=== PATIENT | male | born 1935 | race Caucasian/White ===

== ENCOUNTER 2016-06-19 06:07 | Emergency (ER) | payer OTHER, MEDICARE ==
[2016-06-19 06:13] VITALS: PULSE 82; TEMP 98.2
--- NOTE | 2016-06-19 06:16 | EDPHY ---
H & P Stated Complaint: cough/cold HPI/ROS: HPI CHIEF COMPLAINT: Cough x5 days HISTORY OF PRESENT ILLNESS: This patient very pleasant 81-year-old male significant past medical history for hypertension, presents to the emergency room with 5 days of worsening cough with clear to yellow sputum. Does tell me that he does not have any chest pain or shortness of breath. Denies fever. Tells me about 5-6 days ago he developed a postnasal drip and congestion. This persisted into a cough. He has been having trouble sleeping. He tells me he has been up all night coughing. He takes deep breath in this causes a spasm any begins to cough with faint wheezing. He denies nausea, vomiting, diarrhea, muscle aches or joint pain. Past Medical History: Hypertension Past Surgical History: Denies recent surgical history Social History: denies use of drugs alcohol tobacco products Family History: Noncontributory ROS REVIEW OF SYSTEMS: A comprehensive 10 point review of systems is otherwise negative aside from elements mentioned in the history of present illness. Exam Constitutional triage nursing summary reviewed, vital signs reviewed, awake/ alert. Eyes normal conjunctivae and sclera, EOMI, PERRLA. HENT normal inspection, atraumatic, moist mucus membranes, no epistaxis, neck supple/ no meningismus, no raccoon eyes. Respiratory faint wheezing bilaterally, bronchitic sounding cough, normal breath sounds, no respiratory distress Cardiovascular rate normal, regular rhythm, no murmur, no edema, distal pulses normal. Gastrointestinal soft, non-tender, no rebound, no guarding, normal bowel sounds, no distension, no pulsatile mass. Genitourinary no CVA tenderness. Musculoskeletal no midline vertebral tenderness, full range of motion, no calf swelling, no tenderness of extremities, no meningismus, good pulses, neurovascularly intact. Skin pink, warm, & dry, no rash, skin atraumatic. Neurologic awake, alert and oriented x 3, AAOx3, moves all 4 extremities equally, motor intact, sensory intact, CN II-XII intact, normal cerebellar, normal vision, normal speech. Psychiatric normal mood/affect. Heme/Lymph/Immune no lymphadenopathy. Differential Diagnosis: includes but is not limited to in a particular order, upper respiratory tract infection, viral syndrome, bronchitis, pneumonia, reactive airway disease, asthma, CHF Medical Decision Making: this patient be given a DuoNeb breathing treatment here 60 mg prednisone p. o., or evaluate for two view chest x-ray to rule out pneumonia. Re-evaluation: 0659: re-evaluation at this time patient is feeling much better after DuoNeb breathing treatment. Chest x-ray reviewed shows no acute pneumonia. Clear lung eng. ED x-ray chest two view: negative for acute cardiopulmonary disease. 0659: at this time she is resting comfortably. No complaints. Patient be sent home on guaifenesin decongestion, prednisone 60 mg for 5 days, azithromycin antibiotic and albuterol inhaler. patient understands return emergency room if there is any worsening symptoms questions or concerns. Source: Patient - Personal History Current Tetanus/Diphtheria Vaccine: No - Medical/Surgical History Hx Asthma: No Hx Chronic Respiratory Disease: No Hx Diabetes: No Hx Cardiac Disease: No Hx Renal Disease: No Hx Cirrhosis: No Hx Alcoholism: No Hx HIV/AIDS: No Hx Splenectomy or Spleen Trauma: No Other PMH: PMHx: Cyst left leg, DVT, HTN. PSHx: bilat shoulder, back, cyst from hip - Social History Smoking Status: Former smoker Constitutional: Initial Vital Signs Temperature (C) 36.8 C 06/19/16 06:10 Heart Rate 82 06/19/16 06:10 Respiratory Rate 16 06/19/16 06:10 Blood Pressure 162/88 H 06/19/16 06:10 O2 Sat (%) 95 06/19/16 06:10 O2 Delivery Mode Room Air Allergies/Adverse Reactions: No Known Allergies Allergy (Unverified 11/27/13 11:06) Home Medications: Medication Instructions Recorded HCTZ (RX) 11/27/13 AZITHROMYCIN [Z-PACK] 250 mg PO DAILY #6 tab 06/19/16 Albuterol [Proventil Inhaler HFA 1 - 2 puffs IH Q4H #1 mdi 06/19/16 (*)] Dexamethasone [Decadron 4 MG (*)] 4 mg PO DAILY #4 tab 06/19/16 Guaifenesin [Guaifenesin ER] 600 mg PO BID #14 tab.er.12h 06/19/16 predniSONE 60 mg PO DAILY #15 tab 06/19/16 Medical Decision Making - Data Points Medications Given: Discontinued Medications Albuterol/Ipratropium (Duoneb) 3 ml IH EDNOW ONE Stop: 06/19/16 06:21 Last Admin: 06/19/16 06:26 Dose: 3 ml Prednisone (Prednisone) 60 mg PO EDNOW ONE Stop: 06/19/16 06:21 Last Admin: 06/19/16 06:26 Dose: 60 mg Departure - Departure Disposition: Home, Routine, Self-Care Clinical Impression: Acute bronchitis Qualifiers: Bronchitis organism: unspecified organism Qualifier Code: (J20.9) Acute bronchitis, unspecified Condition: Good Instructions: Acute Bronchitis (ED) Additional Instructions: 1. drink lots of fluids stay well-hydrated 2. return to the emergency room if there is any worsening symptoms questions or concerns. Referrals: Ankush Rios MD [Primary Care Provider] - As per Instructions Prescriptions: Dexamethasone [Decadron 4 MG (*)] 4 mg PO DAILY #4 tab Guaifenesin [Guaifenesin ER] 600 mg PO BID #14 tab.er.12h Albuterol [Proventil Inhaler HFA (*)] 1 - 2 puffs IH Q4H #1 mdi AZITHROMYCIN [Z-PACK] 250 mg PO DAILY #6 tab predniSONE 60 mg PO DAILY #15 tab
[2016-06-19] MEDS ORDERED: predniSONE 20 MG TAB PO ONE (06:20)
[2016-06-19] MEDS ORDERED: IPRATROPIUM/ALBUTEROL 3 ML DEYVIAL IH ONE (06:20)
[2016-06-19 07:06] VITALS: RESP 18; O2SAT 96
[2016-06-19 07:24] VITALS: BP 109/76
--- NOTE | 2016-06-19 09:34 | DX ---
PA and Lateral Chest Clinical Indications: Cough, congestion and shortness of breath in an 81-year-old male. Comparison: December 15, 2011. Findings: The lungs are clear. There is hyperexpansion seen with flattening of the hemidiaphragms no beronica. The heart size and pulmonary vascularity are normal. Pleural surfaces and bony thorax are negati ve for acute abnormality. Aortic tortuosity is seen which may be associated with systemic hypertension. Impression: Query COPD with no superimposed acute abnormality identified.
== END 2016-06-19 07:25 | disposition home or self-care (01) ==
DX: J20.9 Acute bronchitis, unspecified (principal); I10 Essential (primary) hypertension; Z87.891 Personal history of nicotine dependence

== ENCOUNTER → 2016-10-13 | Outpatient (CLI) | payer OTHER, MEDICARE | LOC: FIMAGING 07:46 | PROVIDERS: ATTEND Internal Medicine | DX: I71.4 Abdominal aortic aneurysm, without rupture (principal) ==

== ENCOUNTER → 2017-01-30 | Outpatient (CLI) | payer OTHER, MEDICARE | LOC: CIMAGING 16:57 | PROVIDERS: ATTEND Internal Medicine | DX: R10.32 Left lower quadrant pain (principal) | CPT/HCPCS: 73502-PO ==

== ENCOUNTER → 2017-02-08 | Outpatient (CLI) | payer OTHER, MEDICARE | LOC: FIMAGING 15:22 | PROVIDERS: ATTEND Physical Medicine & Rehabilitation | DX: M48.06 Spinal stenosis, lumbar region (principal); M43.16 Spondylolisthesis, lumbar region; M51.36 Other intervertebral disc degeneration, lumbar region; M51.26 Other intervertebral disc displacement, lumbar region; I71.4 Abdominal aortic aneurysm, without rupture ==

== ENCOUNTER → 2017-04-09 | Outpatient (CLI) | payer OTHER, MEDICARE | LOC: CIMAGING 16:42 | PROVIDERS: ATTEND Internal Medicine | DX: R06.00 Dyspnea, unspecified (principal); N50.9 Disorder of male genital organs, unspecified | CPT/HCPCS: 71020-PO ==

== ENCOUNTER → 2017-04-09 | Emergency (ER) | payer OTHER, MEDICARE ==
[~2017-04-09] MED LIST: ALBUTEROL INH PREPACK MDI TAKEHOME ONE; ASPIRIN 81 MG CHEWABLE TAB PO ONE; AZITHROMYCIN 250 MG TAB PO ONE; IOPAMIDOL (ISOVUE 370) 100 ML BTL IV ONE
[2017-04-09 17:45] VITALS: RESP 16
--- NOTE | 2017-04-09 17:54 | CPEKG ---
Heart Rate: 60 RR Interval: 1000 P-R Interval: 176 QRSD Interval: 76 QT Interval: 448 QTC Interval: 448 P [place]: -20 QRS [place]: -7 T Wave [place]: 23 EKG Severity - NORMAL ECG - EKG Impression: SINUS RHYTHM Electronically Signed By: William Hutton 09-Apr-2017 19:29:26
[2017-04-09 17:59] VITALS: TEMP 97.2
[2017-04-09 18:23] LABS: INR 1.13 (0.83-1.16); PROTIME(PATIENT) 14.2 SEC (12.0-15.0)
[2017-04-09 18:24] LABS: APTT 28.6 SEC (23.0-38.0)
[2017-04-09 18:38] LABS: TROPONIN I < 0.012 ng/mL (0.000-0.034)
--- NOTE | 2017-04-09 18:53 | EDPHY ---
H & P Stated Complaint: sob,fatigue,dyspnea x2 weeks ago. Denies fever as well as CP. Time Seen by Provider: 04/09/17 17:41 HPI/ROS: For 2 weeks this patient has had increasing dyspnea on exertion as well as generalized fatigue. He has chronic left leg swelling addition without recent change. He presented to his primary physician's office-Dr. Rios internal medicine upstairs at [facility] with these symptoms & an initial w /u that revealed an elevated D-dimer at 1.2. Concerned about potential pulmonary embolism, the patient is sent here for further evaluation. The Patient denies any other associated symptoms besides dyspnea on exertion and increasing fatigue & a cough - occasionally productive of sputum -over the past 2 weeks in addition. ROS: No fevers or chills. Positive fatigue HEENT: Positive nasal congestion over the past week or so. No facial pain. No sore throat ear pain. Pulmonary: He denies any pleuritic pain. No hemoptysis. Cardiovascular: No heart palpitations or lightheadedness. No chest pain. GI: No nausea or vomiting. No diarrhea. No abdominal pain : No complaints 9 integumentary: No skin rash Endocrine no complaints Complete review of symptoms is otherwise negative. Source: Patient, RN/MD (Dr. Rios, patient's internal medicine physician called regarding this patient and sent him from his office for further evaluation) - Medical/Surgical History PMH: Notable for prior history of DVT. Hx Asthma: No Hx Chronic Respiratory Disease: No Hx Diabetes: No Hx Cardiac Disease: No Hx Renal Disease: No Hx Cirrhosis: No Hx Alcoholism: No Hx HIV/AIDS: No Hx Splenectomy or Spleen Trauma: No Other PMH: PMHx: Cyst left leg, DVT, HTN. PSHx: bilat shoulder, back, cyst from hip - Family History Significant Family History: No pertinent family hx - Social History Smoking Status: Former smoker Alcohol Use: Occasionally Drug Use: None - Physical Exam Exam: General Appearance: Pleasant 82-year-old male Alert, no distress. Eyes: Pupils equal and round no pallor or injection. ENT, Mouth: Mucous membranes moist. Respiratory: There are no retractions, lungs are clear to auscultation. Cardiovascular: Regular rate and rhythm. No murmur gallop rub. No significant leg tenderness. Gastrointestinal: Abdomen is soft and nontender, no masses, bowel sounds normal. Neurological: GCS 15 Skin: Warm and dry, no rashes. Musculoskeletal: Neck is supple nontender. Extremities are symmetrical, full range of motion. Psychiatric: Mood and affect normal DIFFERENTIAL DIAGNOSIS: After history and physical exam differential diagnosis was considered for bronchitis, pneumonia, pulmonary embolism, aortic dissection , ischemic cardiac disease. Constitutional: Initial Vital Signs Temperature (C) 36.2 C 04/09/17 17:44 Heart Rate 66 04/09/17 17:44 Respiratory Rate 16 04/09/17 17:44 Blood Pressure 150/82 H 04/09/17 17:44 O2 Sat (%) 95 04/09/17 17:44 O2 Delivery Mode Room Air Allergies/Adverse Reactions: No Known Allergies Allergy (Unverified 11/27/13 11:06) Home Medications: Medication Instructions Recorded HCTZ (RX) 11/27/13 Azithromycin [Zithromax] 250 mg PO DAILY #6 tab 04/09/17 Flomax 04/09/17 Glaucoma Drops 04/09/17 Medical Decision Making - Diagnostics EKG Interpretation: 12 lead EKG performed shortly after arrival at 5:53 p.m. reveals sinus rhythm at 60 Intervals: Normal throughout [place]: P of-20, QRS of-7, T of 23 ST segments: Normal throughout Overall assessment normal EKG Please refer to trace master for complete read. Imaging: Discussed imaging studies w/ manager commercial real estate Radiologist ED Course/Re-evaluation: IV, monitor, aspirin 324 p.o. I spoke with Dr. Galan regarding this patient's CT angio that ruled out pulmonary embolism or aortic dissection. The patient has bronchitic changes consistent with airway disease as well as mildly enlarged mediastinal lymph nodes to 1.[address] Galan suspects these are reactive in relation to bronchitis but recommends a repeat CT chest with IV contrast 6 weeks Discussion: Patient with mild cough, dyspnea on exertion, evidence of airway disease and CT and mild lymphadenopathy in the mediastinum likely reactive to bronchial findings. We ruled out pulmonary embolism. The patient seems to have a mild bronchitis that may be causing his dyspnea and cough. I counseled regarding this. Patient is treated with 1st dose of Zithromax 500 mg p.o. with plan to go home on albuterol inhaler for any wheezing or shortness of breath. He will follow up with Dr. Rios-his primary care physician with plan to repeat CT chest with IV contrast in 6 weeks or so to evaluate for any interval change in mediastinal lymph nodes. I do not think the patient has ischemic cardiac disease given normal EKG and negative troponin and lack of other suggestive findings. - Data Points Medications Given: Discontinued Medications Albuterol Sulfate (Proventil Inh Prepack) 1 mdi TAKEHOME EDNOW ONE Stop: 04/09/17 18:59 Last Admin: 04/09/17 19:25 Dose: 1 mdi Aspirin (Aspirin) 324 mg PO EDNOW ONE Stop: 04/09/17 17:44 Last Admin: 04/09/17 17:55 Dose: 324 mg Azithromycin (Zithromax) 500 mg PO EDNOW ONE PRN Reason: Protocol Stop: 04/09/17 18:59 Last Admin: 04/09/17 19:26 Dose: 500 mg Departure - Departure Disposition: Home, Routine, Self-Care Clinical Impression: Mediastinal lymphadenopathy Dyspnea Qualifiers: Dyspnea type: dyspnea on exertion Qualified Code(s): R06.09 - Other forms of dyspnea Acute bronchitis Qualifiers: Bronchitis organism: unspecified organism Qualified Code(s): J20.9 - Acute bronchitis, unspecified Condition: Good Instructions: Azithromycin (By mouth), Acute Bronchitis (ED) Additional Instructions: Diagnoses: 1. Dyspnea 2. Acute bronchitis 3. Mild enlargement of mediastinal lymph nodes Your CT angio of the chest tonight ruled out pulmonary embolism-no blood clot. No pneumonia. ED a findings consistent with bronchitis and mild enlargement lymph nodes in your mediastinum perhaps secondary to the bronchitis Plan: Humidifier Albuterol inhaler for cough, wheeze or shortness of breath-2 puffs every 4 hours as needed. Zithromax antibiotic Repeat CT of chest with IV contrast to evaluate mediastinal lymph nodes in 6 weeks. Set this up through Dr. Rios-primary care physician Return for any significant worsening despite the treatment plan. Referrals: Ankush Rios MD [Primary Care Provider] - As per Instructions Prescriptions: Azithromycin [Zithromax] 250 mg PO DAILY #6 tab
[2017-04-09 20:07] VITALS: BP 125/72; PULSE 56; O2SAT 96
== END | disposition home or self-care (01) ==
LOC: CED 17:32
DX: J20.9 Acute bronchitis, unspecified (principal); R59.1 Generalized enlarged lymph nodes; I10 Essential (primary) hypertension; Z87.891 Personal history of nicotine dependence
CPT/HCPCS: 71275; 93005; 99285; Q9967; 71020-PO; 80048-PO; 83880-PO; 84484-PO; 85025-PO; 85378-PO; 85610-PO; 85730-PO; G0463-PO

== ENCOUNTER → 2017-04-11 | Outpatient (CLI) | payer OTHER, MEDICARE | LOC: CIMAGING 09:57 | PROVIDERS: ATTEND Internal Medicine | DX: N43.3 Hydrocele, unspecified (principal); N50.3 Cyst of epididymis | CPT/HCPCS: 76870-PO ==

== ENCOUNTER → 2018-08-14 | Outpatient (CLI) | payer OTHER, MEDICARE | LOC: FIMAGING 07:36 | PROVIDERS: ATTEND Internal Medicine | DX: I70.0 Atherosclerosis of aorta (principal); I71.4 Abdominal aortic aneurysm, without rupture; R29.898 Other symptoms and signs involving the musculoskeletal system ==

== ENCOUNTER → 2018-08-30 | Outpatient (CLI) | payer OTHER, MEDICARE | LOC: BHFA 15:30 | PROVIDERS: ATTEND Internal Medicine Interventional Cardiology | DX: R29.898 Other symptoms and signs involving the musculoskeletal system (principal); I71.4 Abdominal aortic aneurysm, without rupture ==